=== PATIENT | female | born 1990 | race Caucasian/White ===

== ENCOUNTER → 2019-09-18 11:35 | Outpatient (BNVA) | payer BC, SELFPAY | PROVIDERS: Visit Provider Obstetrics & Gynecology | DX: E03.9 Hypothyroidism, unspecified (principal) | CPT/HCPCS: 84443 ==

== ENCOUNTER → 2019-10-17 16:43 | Outpatient (BNVA) | payer BC, SELFPAY | PROVIDERS: Visit Provider Obstetrics & Gynecology | DX: E03.9 Hypothyroidism, unspecified (principal) | CPT/HCPCS: 84443 ==

== ENCOUNTER → 2019-11-19 15:44 | Outpatient (BNVA) | payer BC, SELFPAY | PROVIDERS: Visit Provider Obstetrics & Gynecology | DX: E03.9 Hypothyroidism, unspecified (principal) | CPT/HCPCS: 84443 ==

== ENCOUNTER → 2020-02-22 14:40 | Outpatient (BNVA) | payer BC, SELFPAY | PROVIDERS: Visit Provider Obstetrics & Gynecology | DX: E03.9 Hypothyroidism, unspecified (principal) | CPT/HCPCS: 84443 ==

== ENCOUNTER → 2020-04-18 14:32 | Outpatient (BNVA) | payer BC, SELFPAY | PROVIDERS: Visit Provider Obstetrics & Gynecology | DX: E03.9 Hypothyroidism, unspecified (principal) | CPT/HCPCS: 84443 ==

== ENCOUNTER → 2020-06-30 08:25 | Outpatient (BNVA) | payer BC, SELFPAY | PROVIDERS: Visit Provider Obstetrics & Gynecology | DX: E03.9 Hypothyroidism, unspecified (principal) | CPT/HCPCS: 84443 ==

== ENCOUNTER → 2020-08-18 08:53 | Outpatient (BNVA) | payer BC, SELFPAY | PROVIDERS: Visit Provider Obstetrics & Gynecology | DX: E03.9 Hypothyroidism, unspecified (principal); Z30.45 Encounter for surveillance of transdermal patch hormonal contraceptive device; Z01.419 Encounter for gynecological examination (general) (routine) without abnormal findings | CPT/HCPCS: 84443 ==

== ENCOUNTER → 2020-10-20 08:45 | Outpatient (BNVA) | payer BC, SELFPAY | PROVIDERS: Visit Provider Obstetrics & Gynecology | DX: E03.9 Hypothyroidism, unspecified (principal) | CPT/HCPCS: 84443 ==

== ENCOUNTER → 2022-10-08 08:40 | Outpatient (BNVA) | payer BC, SELFPAY | PROVIDERS: Visit Provider Internal Medicine | DX: E03.9 Hypothyroidism, unspecified (principal); L65.9 Nonscarring hair loss, unspecified; R11.0 Nausea | CPT/HCPCS: 36415; 84439; 84443; 86376; 86800 ==

== ENCOUNTER → 2023-06-30 08:54 | Outpatient (BNVA) | payer BC, SELFPAY | PROVIDERS: Visit Provider Internal Medicine | DX: E03.9 Hypothyroidism, unspecified (principal); L65.9 Nonscarring hair loss, unspecified; Z13.220 Encounter for screening for lipoid disorders; Z13.1 Encounter for screening for diabetes mellitus; E88.810 Metabolic syndrome | CPT/HCPCS: 80053; 80061; 82044; 83036; 84439; 84443 ==

== ENCOUNTER → 2023-08-26 07:53 | Outpatient (BNVA) | payer BC, SELFPAY | PROVIDERS: Visit Provider Internal Medicine | DX: E03.9 Hypothyroidism, unspecified (principal); L65.9 Nonscarring hair loss, unspecified; Z13.220 Encounter for screening for lipoid disorders; Z13.1 Encounter for screening for diabetes mellitus; E88.810 Metabolic syndrome | CPT/HCPCS: 36415; 80061; 84439; 84443 ==

== ENCOUNTER 2023-11-11 14:58 | Outpatient (CLI) | payer BC, SELFPAY ==
[2023-11-11 16:05] LABS: Free T4 Free Thyroxine 1.14 ng/dL (0.82-1.77)
== END 2023-11-11 14:59 | disposition home or self-care (01) ==
LOC: LAB 15:00
PROVIDERS: Visit Provider Internal Medicine
DX: E03.9 Hypothyroidism, unspecified (principal)
CPT/HCPCS: 84439; 84443

== ENCOUNTER 2023-12-22 11:36 | Outpatient (CLI) | payer BC, SELFPAY ==
[2023-12-22 13:38] LABS: Chol HDL Ratio 3.49 mg/dL (0.0-4.40); Cholesterol 199 mg/dL (0-200); HDL Cholesterol 57 mg/dL (60-100); LDL Cholesterol Calculated 119 mg/dL (50-129); LDL HDL Ratio 2.09 RATIO (0.00-3.22); Thyroid Stimulating Hormone 3.53 uIU/mL (0.27-4.20); Triglycerides 117 mg/dL (0-150)
[2023-12-22 14:28] LABS: Free T4 Free Thyroxine 1.36 ng/dL (0.82-1.77)
== END 2023-12-22 11:37 | disposition home or self-care (01) ==
LOC: LAB 11:37
PROVIDERS: Visit Provider Internal Medicine
DX: E88.810 Metabolic syndrome (principal); E03.9 Hypothyroidism, unspecified; Z13.1 Encounter for screening for diabetes mellitus
CPT/HCPCS: 36415; 80061; 84439; 84443

== ENCOUNTER 2025-05-21 07:43 | Outpatient (CLI) | payer BC, SELFPAY | END 2025-05-21 07:44 | disposition home or self-care (01) | PROVIDERS: Visit Provider Internal Medicine | DX: E03.9 Hypothyroidism, unspecified (principal) | CPT/HCPCS: 84439; 84443 ==